=== PATIENT | male | born 1970 | race African-American/Black ===

== ENCOUNTER 2021-06-27 17:37 | Emergency (ER) | payer OTHER ==
[2021-06-27 19:30] LABS: CORONAVIRUS COVID-19 NAA NEGATIVE (NEGATIVE)
[2021-06-27] MEDS ORDERED: cefTRIAXone 2 GM, Lidocaine 1% 4.2 ML IM ONE ×2 (20:16)
[2021-06-27] MEDS ORDERED: Ibuprofen 400 MG Tab PO ONE (20:16)
== END 2021-06-27 21:02 ==
LOC: JP.ED 17:37
DX: N10 Acute pyelonephritis (principal); B96.89 Other specified bacterial agents as the cause of diseases classified elsewhere; Z72.0 Tobacco use; Z20.822 Contact with and (suspected) exposure to COVID-19
CPT/HCPCS: 0241U; 36415; 71046; 80053; 80305; 80307; 81001; 83605; 83690; 85025; 96372; 99284; A9270; J0696